=== PATIENT | female | born 1955 | race Two or more races ===

== ENCOUNTER 2017-01-04 10:45 | Emergency (ER) | payer OTHER ==
--- NOTE | ~2017-01-04 | US85 ---
[facility]. [facility] A Service of [facility] RADIOLOGY TEXT RESULTS PATIENT: TING HOFF LOCATION: SED : 57 UNIT #: [id number] AGE: [address]: Nuvia Lord MD SEX: F ORDER DR: [id number] [place] [id number] E MR#: [id number] Acc #: [id number] NAME: TING HOFF : 1955 SEX: F STUDY DATE/TIME: 01/04/2017 11:35 UNIT: SED ROOM: STUDY DESCRIPTION: LE Veins Unilat or Ltd Stdy Attending Physician: Nuvia Lord M.D. Ordering Physician: Nuvia Lord M.D. Primary Care Physician: Shashank Sawant M.D. MEDICAL IMAGING REPORT This report is preliminary unless electronic signature is present. EXAM Left leg vein Doppler 01/04 INDICATIONS Left lower extremity pain for the last 10 days. TECHNIQUE Venous ultrasound examination of the left lower extremity was performed using grayscale, spectral Doppler and color flow Doppler imaging. FINDINGS The examination is negative. There is no evidence of left lower extremity deep venous thrombus from the groin to the lower calf. Visualized greater saphenous vein is also patent. IMPRESSION Negative examination. No evidence of left lower extremity deep venous thrombosis. Dictated by... Ayush Blake Jr., M.D. THIS IS AN ELECTRONICALLY VERIFIED REPORT Ayush Blake Jr., M.D. at 01/05/2017 2:18 PM MANOLO/lakeisha TD: 01/04/2017 16:24 JOB #: [id number] MEDICAL IMAGING REPORT Page 1 of 1
== END 2017-01-04 12:33 | disposition home or self-care (01) ==
LOC: SED 10:45
DX: S76.912A Strain of unspecified muscles, fascia and tendons at thigh level, left thigh, initial encounter (principal); Z88.0 Allergy status to penicillin; W22.03XA Walked into furniture, initial encounter; Y92.009 Unspecified place in unspecified non-institutional (private) residence as the place of occurrence of the external cause
CPT/HCPCS: 93971; 99284